=== PATIENT | female | born 1995 | race Caucasian/White ===

== ENCOUNTER 2023-12-07 23:16 | Emergency (ER) | payer OTHER ==
[~2023-12-07] VITALS: Ht 182.9 cm; Wt 57.0 kg
[2023-12-08] MEDS: BOOSTRIX VACCINE (TETANUS/DIPHTH/ACEL. PERTUSSIS) 0.5ML SYR IM.IMMUN ONE (07:38)
[2023-12-08 07:43] VITALS: BP 116/68; TEMP 97.9; O2SAT 98
== END 2023-12-08 08:01 | disposition home or self-care (01) ==
LOC: M ED 23:16
DX: S60.122A Contusion of left index finger with damage to nail, initial encounter (principal); W22.8XXA Striking against or struck by other objects, initial encounter; Y92.89 Other specified places as the place of occurrence of the external cause; Y93.89 Activity, other specified; Y99.0 Civilian activity done for income or pay